=== PATIENT | female | born 1945 | race Caucasian/White ===

== ENCOUNTER → 2023-12-15 11:39 | Outpatient (REF) | payer MEDICARE, OTHER, SELFPAY ==
[2023-12-15 13:35] LABS: Blood Urea Nitrogen 24 mg/dl (7-17)
== END ==
LOC: REG 11:39
PROVIDERS: ATTENDING PHYSICIAN Internal Medicine Gastroenterology
DX: K86.9 Disease of pancreas, unspecified (principal)
CPT/HCPCS: 36415; 82565; 84520

== ENCOUNTER → 2023-12-18 11:33 | Outpatient (REF) | payer MEDICARE, OTHER, SELFPAY | LOC: HWRAD 11:33 | PROVIDERS: ATTENDING PHYSICIAN Internal Medicine Gastroenterology | DX: D49.0 Neoplasm of unspecified behavior of digestive system (principal) | CPT/HCPCS: 74170; Q9967 ==

== ENCOUNTER → 2023-12-31 10:50 | Outpatient (REF) | payer MEDICARE, OTHER, SELFPAY | LOC: WDC 10:50 | PROVIDERS: ATTENDING PHYSICIAN Internal Medicine Hematology & Oncology | DX: Z12.31 Encounter for screening mammogram for malignant neoplasm of breast (principal); Z85.3 Personal history of malignant neoplasm of breast; C50.511 Malignant neoplasm of lower-outer quadrant of right female breast | CPT/HCPCS: 77063; 77067 ==

== ENCOUNTER → 2024-01-12 | Outpatient (REF) | payer MEDICARE, OTHER, SELFPAY | LOC: DHSLP | PROVIDERS: ATTENDING PHYSICIAN Internal Medicine Cardiovascular Disease | DX: G47.30 Sleep apnea, unspecified (principal); R06.83 Snoring | CPT/HCPCS: 95800 ==

== ENCOUNTER → 2024-02-02 12:31 | Outpatient (REF) | payer MEDICARE, OTHER, SELFPAY ==
[2024-02-02 13:59] LABS: % Basophils 0.9 % (0-2); % Eosinophils 5.1 % (0-6); % Immature Granulocytes 0.4 % (0-0.5); % Lymphocytes 22.9 % (20.5-51.1); % Monocytes 9.7 % (1.7-9.3); Absolute Basophils 0.1 10^3/uL (0-0.2); Absolute Eosinophils 0.4 10^3/uL (0-0.7); Absolute Lymphocytes 1.6 10^3/uL (1.2-3.4); Absolute Monocytes 0.7 10^3/uL (0.1-0.6); Absolute Neutrophils 4.2 10^3/uL (1.4-6.5); Hematocrit 44.5 % (37.0-47.0); Hemoglobin 14.6 g/dL (12.0-16.0); Mean Corp Hgb Conc. 32.8 g/dL (33.0-37.0); Mean Corpuscular Hgb 31.7 pg (27.0-31.0); Mean Corpuscular Volume 96.7 fL (81.0-99.0); Mean Platelet Volume 9.2 fL (7.4-10.4); Nucleated Red Blood Cells % 0 %; Platelet Count 184 10^3/uL (130-400); Red Cell Dist. Width 13.3 % (11.5-14.5); White Blood Cell Count 6.9 10^3/uL (4.8-10.8)
[2024-02-02 14:16] LABS: ALT (SGPT) 26 U/L (0-35); AST (SGOT) 30 U/L (14-36); Albumin 4.3 g/dl (3.5-5.0); Alkaline Phosphatase 117 U/L (38-126); Blood Urea Nitrogen 18 mg/dl (7-17); Calcium 9.8 mg/dl (8.4-10.2); Carbon Dioxide 28 mmol/L (22-30); Chloride 100 mmol/L (98-107); Glucose 99 mg/dl (70-99); Magnesium 2.3 mg/dl (1.6-2.3); Potassium 3.8 mmol/L (3.5-5.1); Sodium 135 mmol/L (135-145); Total Bilirubin 0.6 mg/dl (0.2-1.3); Total Protein 7.3 g/dl (6.3-8.2); eGFR > 60.00
[2024-02-02 14:17] LABS: INR 1.16; PT 14.6 Sec (11.4-14.6)
== END ==
LOC: SDSPAT 12:31
PROVIDERS: ATTENDING PHYSICIAN Internal Medicine Cardiovascular Disease; OTHER PHYSICIAN Internal Medicine Cardiovascular Disease
DX: Z01.818 Encounter for other preprocedural examination (principal); I48.0 Paroxysmal atrial fibrillation; I48.92 Unspecified atrial flutter
CPT/HCPCS: 36415; 75572; 80053; 83735; 85025; 85610; 86850; 86900; 86901; 93005; Q9967

== ENCOUNTER 2024-02-17 08:49 | Day surgery (SDC) | payer MEDICARE, OTHER, SELFPAY ==
[2024-02-02 13:03] VITALS: BMI 48.1
[2024-02-17] VITALS (16 sets, daily range): BP systolic 106–140; BP diastolic 42–81; BMI 47.5
[2024-02-17 12:39] LABS: ACT-LR - POC 295 Seconds (116-155)
[2024-02-17 12:58] LABS: ACT-LR - POC 327 Seconds (116-155)
[2024-02-17 13:14] LABS: ACT-LR - POC 318 Seconds (116-155)
[2024-02-17 13:37] LABS: ACT-LR - POC 379 Seconds (116-155)
[2024-02-17 13:57] LABS: ACT-LR - POC 356 Seconds (116-155)
[2024-02-17] MEDS: ANESTHETIC LOZENGE 1 LOZENGE PO ×2 (14:49→21:23)
--- NOTE | 2024-02-17 15:18 | ITS.CL.ABL ---
Information Assurance Officer - Ablation
Ablation
Procedure Report:
ELECTROPHYSIOLOGIC STUDY AND POSSIBLE ABLATION
DATE: February 17, 2024
Primary Care Provider: Dr Ariel Bartlett
Primary miller rod mill: Dr Kristal Patrick
INDICATION:
Symptomatic Atrial Fibrillation.
Paroxysmal
HISTORY: See H and P.
Symptomatic AF, poorly controlled with attempted medical therapy
HAS-BLED: 1
Age
CHADSVASc: 4
HTN
Age
F Gender
PRESENTING RHYTHM: SR
HISTORY: See H and P.
Symptomatic AF, poorly controlled with attempted medical therapy.
She has a history of paroxysmal atrial fibrillation which was previously detected on device diagnostics when she had a dual-chamber permanent pacemaker. Due to the need for left-sided radiation therapy for breast cancer. She underwent removal of the
right sided permanent pacemaker generator with capping of the retained leads as well as implantation of AV micra pacemaker.�
She has demonstrated recurrent symptomatic paroxysmal atrial fibrillation and 'atrial flutter'.
Evaluation of electrocardiogram from [facility] where she presented with symptomatic tachycardia on January 31, 2023 demonstrates atrial flutter with a rapid ventricular rate. Flutter does appear to be atypical.
ANTICOAGULATION: Eliquis 5 mg twice
'TIME-OUT': called and confirmed.
SEDATION/ANESTHESIA: provided via the anesthesia department using general anesthesia.
PROCEDURE:
Ultrasound Guidance performed by az was utilized for femoral venous Vascular Access b/l.
A decapolar CS catheter was placed within the CS for mapping and pacing.
The intracardiac ultrasound catheter was positioned in the RA for continuous intracardiac ultrasound imaging.
Heparin bolus and infusion to target ACT at 300 -350 seconds was administered. Transseptal puncture was performed. This entailed advancing a sheath with dilator into the superior vena cava and withdrawing both (monitoring intracardiac ultrasound,
fluoroscopy and tip pressure) with the tip oriented toward the atrial septum. The fossa ovalis was engaged (indicated by sudden displacement of the sheath tip as well as tenting of the fossa seen on intracardiac ultrasound). [employer] transseptal
system was used. Left atrial catheter position was confirmed by echocardiographic imaging, pressure monitoring and fluoroscopy. The sheath was advanced over the dilator and positioned in the left atrium. Left atrial catheter position was confirmed
by pressure monitoring as well as fluoroscopy. The sheath was advanced over the dilator and positioned in the left atrium.
The multipolar mapping catheter was initially positioned through the transseptal sheath for high density mapping.
Additional geometry and voltage mapping was performed using the Medtronic Pulse Select PFA catheter and Navex 3-D electroanatomical mapping.
A 3-D map was created using Navex. A 3-D reconstructed CT image was compared to the 3-D Navex map to assist in anatomic evaluation, mapping and ablation.
The psicofxptronic Pulse Select PFA catheter and system was used for cardiac ablation. Catheter positioning was guided and confirmed using both I.C.E. and fluoroscopy.
PV isolation approach was used to electrically isolate each PV ostia.
First, all PVPs were targeted at each vein. All PVPs were eliminated at each vein demonstrating entrance block. Also pacing from the multipolar mapping catheter around the the circumference of the ostia was performed at 10 ma and 2.0 msec output
to assess for exit block.
Additional ablation lesion set was performed beyond ostial isolation to include wide area circumferential ablation. This included delivery of additional energy pulses to the posterior wall of the left atrium along the antrum of each of the
pulmonary veins (left superior, left inferior, right superior, right inferior)
Mapping with the multipolar mapping catheter, [employer], was repeated at each PV ostia to assess for any 're connect', both entrance and exit block was demonstrated and the veins were felt to be fully isolated and a wide area circumferential
ablation pattern.
She carried a history of possible atrial flutter although electrocardiogram demonstrated this was more likely atypical/left atrial flutter. After completion of ablation programmed electrical stimulation was performed which included both burst
atrial pacing as well as delivery of atrial decremental extrastimuli and there were no inducible arrhythmias. Therefore empiric cavotricuspid isthmus ablation was avoided.
I.C.E. :
Pre-Ablation Post-Ablation
LVEF: 55 % 55 %
WMA: none none
Pericardial effusion: Trivial posterior Trivial posterior
COMPLICATIONS:
None
SUMMARY:
- Mapping and ablation to isolate the PVs
- Additional AF ablation set after PVI.
- 3-D Electroanatomical Mapping
- Intracardiac Ultrasound
Post ablation, I discussed today's findings and results with the patient's , Sukumar.
RECOMMENDATIONS:
- Observe in monitored bed.
- Maintain oral anticoagulation.
- Office visit with me in 3 months.
- Continue cardiovascular care with Dr Kristal Patrick
Copy to:
Dr Ariel Bartlett
Primary miller rod mill: Dr Kristal Patrick
[2024-02-17] MEDS: TYLENOL 650 MG PO (15:48)
--- NOTE | 2024-02-17 15:53 | PTCARENOTE ---
pt received post cath to room 2258. Pt AAOX3 resting in bed. SR on telemetry heart rate in 60s. pulses weakly palpable. no edema. pt on 2L nasal cannula, sat 96%. lung sounds diminished. active bowel sounds, tolerating clears and ice chips. denies
urge to void at this time. bilateral groin sites CDI with figure 8 sutures and dressings intact. see worklist for full nursing assessment and interventions.
--- NOTE | 2024-02-17 16:22 | CM ---
Chart reviewed. Patient is independent of ADLS, lives in an apartment attached to her son's house, 1 A[address] the house and then another 9 steps to the patient's apartment, 0 DME. Patient currently with no discharge needs. CM to follow
[2024-02-17] MEDS: ROXICODONE 5 MG PO (18:31)
[2024-02-17] MEDS: ELIQUIS 5 MG PO (20:50)
[2024-02-17] MEDS: COREG 3.125 MG PO (20:50)
[2024-02-17] MEDS: LIPITOR 10 MG PO (21:55)
[2024-02-18] MEDS: ANESTHETIC LOZENGE 1 LOZENGE PO (01:39)
--- NOTE | 2024-02-18 02:39 | PTCARENOTE ---
OOB in recliner at present. Voiding without difficulty. Groin sites wnl. SR on the monitor 60-70's.
[2024-02-18 04:19] VITALS: BP 129/77
[2024-02-18 05:24] LABS: Hematocrit 40.6 % (37.0-47.0); Mean Corp Hgb Conc. 34.5 g/dL (33.0-37.0); Mean Corpuscular Hgb 32.4 pg (27.0-31.0); Platelet Count 198 10^3/uL (130-400); Red Blood Cell Count 4.32 10^6/uL (4.20-5.40); Red Cell Dist. Width 13.5 % (11.5-14.5); White Blood Cell Count 13.7 10^3/uL (4.8-10.8)
[2024-02-18 05:51] LABS: Blood Urea Nitrogen 19 mg/dl (7-17); Calcium 9.7 mg/dl (8.4-10.2); Carbon Dioxide 23 mmol/L (22-30); Chloride 105 mmol/L (98-107); Estimated Creatinine Clearance 74 ml/min; Glucose 118 mg/dl (70-99); Magnesium 2.4 mg/dl (1.6-2.3); Potassium 4.2 mmol/L (3.5-5.1); Sodium 134 mmol/L (135-145); eGFR > 60.00
[2024-02-18 07:16] VITALS: BP 132/58
[2024-02-18] MEDS: COREG 3.125 MG PO (07:16)
[2024-02-18] MEDS: CLARITIN 10 MG PO (07:16)
[2024-02-18] MEDS: ARIMIDEX 1 MG PO (07:16)
[2024-02-18] MEDS: ELIQUIS 5 MG PO (07:16)
[2024-02-18] MEDS: COZAAR 50 MG PO (07:17)
[2024-02-18] MEDS: LASIX 40 MG PO (07:17)
--- NOTE | 2024-02-18 09:34 | W.PN.CARDCBS ---
Today's Communication / Plan
-
stable for d/c home
Impression / Plan
-
Primary Care Provider: Dr Ariel Bartlett
Primary consulting networking engineer: Dr Kristal Patrick
Impression:
Symptomatic paroxysmal Afib
HTN
HLD
Heart block post PPM 2011
MICRA placed 2019
Breast CA post lumpectomy, chemo/XRT 2018
DDD
OA
MO
Pancreatic lesion
peripheral neuropathy
Diverticulosis
Plan:
post PFA PVI ablation 02/17/24
feels good, groins stable
tele SR 1 deg AVB
OAC Eliquis
continue losartan, carvedilol
Activity restrictions reviewed
f/u Dr. Carlos in 2 mo
home today
Progress Note - Medical Billing Supervisor
Subjective
Date of Service: February 18, 2024
no cp, sob
Objective
Labs:
02/18/24 04:28
02/18/24 04:28
Labs
Hgb 14.0 g/dL (12.0-16.0) 02/18/24 04:28
Hct 40.6 % (37.0-47.0) 02/18/24 04:28
Plt Count 198 10^3/uL (130-400) 02/18/24 04:28
Sodium 134 mmol/L (135-145) L 02/18/24 04:28
Potassium 4.2 mmol/L (3.5-5.1) 02/18/24 04:28
BUN 19 mg/dl (7-17) H 02/18/24 04:28
Creatinine 0.7 mg/dL (0.6-1.0) 02/18/24 04:28
Glucose 118 mg/dl (70-99) H 02/18/24 04:28
Vital Signs and I&O:
Vital Signs
Temp Pulse Resp BP Pulse Ox
97.4 F 72 20 132/58 97
02/18/24 08:03 02/18/24 07:17 02/18/24 08:03 02/18/24 07:17 02/18/24 08:03
Vital Signs
Temp Pulse Resp BP Pulse Ox
97.4 F 72 20 132/58 97
02/18/24 08:03 02/18/24 07:17 02/18/24 08:03 02/18/24 07:17 02/18/24 08:03
Intake & Output
02/16/24 02/17/24 02/18/24 02/19/24
06:59 06:59 06:59 06:59
Intake Total 1810 / 1810
Output Total 500 / 500
Balance 1310 / 1310
Physical Exam
Physical Exam
NAD< AOX3
S1, S2, RRR
CTAB, diminished bases, non labored
SNTND Bsx4, obese
b/l groins c/d/i no HT, soft
[2024-02-18 12:32] VITALS: BP 124/59
--- NOTE | 2024-02-18 13:44 | W.DS.TRANS ---
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
-
Discharge Instructions:
Sleep Apnea Risk Intermediate
Discharge Diagnosis/Procedures AFib, s/p Ablation
Diet Low Cholesterol
Driving Restrictions No driving for 24 hours
Instructions:
Stand-Alone Forms: DC Instructions- Cath/EP Lab
Changes to Home Medications: No
Discharge Medications:
DC Medications w/original date entered in [employer]
losartan 50 mg tablet 50 mg PO DAILY Blood pressure 08/08/15
calcium citrate 200 mg (950 mg) tablet 500 mg PO BID Supplement 04/15/19
coenzyme Q10 200 mg capsule (Co Q-10) 400 mg PO HS Supplement 04/15/19
triamcinolone acetonide 55 mcg nasal spray aerosol (Nasacort) 2 sprays intranasal DAILY Allergies 08/11/19
cholecalciferol (vitamin D3) 50 mcg (2,000 unit) tablet 2,000 units PO HS Supplement 09/17/19
furosemide 40 mg tablet 40 mg PO DAILY Fluid retention/Swelling 09/17/19
simvastatin 20 mg tablet 10 mg PO HS High cholesterol 09/17/19
vit C 250 mg-vit E 90 mg-zinc 40 mg-copper 1 [id number] capsule (PreserVision AREDS-2) 1 ea PO BID Supplement/Eye 09/17/19
L.acidoph, paracasei,B. lactis 10 billion cell capsule 1 ea PO HS Supplement 04/26/20
anastrozole 1 mg tablet 1 mg PO DAILY Cancer 04/26/20
ascorbic acid (vitamin C) 1,000 mg tablet (Vitamin C) 1,200 mg PO DAILY Supplement 04/26/20
apixaban 5 mg tablet (Eliquis) 5 mg PO BID Blood clot prevention/tx ##0 04/27/20
carvedilol 3.125 mg tablet 3.125 mg PO BID 01/27/24
fexofenadine 180 mg tablet 180 mg PO HS Allergies 01/27/24
polyethylene glycol 3350 17 gram oral powder packet (Miralax) 17 g PO DAILYPRN PRN constipation 02/02/24
acetaminophen 500 mg capsule 500 mg PO Q6HPRN PRN pain 02/17/24
loratadine 10 mg tablet (Claritin) 10 mg PO DAILY 02/17/24
magnesium 250 mg tablet 500 mg PO HS 02/17/24
peg 400-propylene glycol 0.4 %-0.3 % eye drops (Systane (propylene glycol)) 1 drp BOTH EYES TID 02/17/24
Home Medication Changes
Pending Results: No
== END 2024-02-18 13:35 | disposition home or self-care (01) ==
LOC: CATH 08:49
PROVIDERS: Nurse Practitioner; ATTENDING PHYSICIAN Internal Medicine Cardiovascular Disease
DX: I48.0 Paroxysmal atrial fibrillation (principal); I48.92 Unspecified atrial flutter; R07.89 Other chest pain; R00.2 Palpitations; R06.02 Shortness of breath; Z79.01 Long term (current) use of anticoagulants; Z79.899 Other long term (current) drug therapy; I10 Essential (primary) hypertension; E78.5 Hyperlipidemia, unspecified; I44.1 Atrioventricular block, second degree; I07.1 Rheumatic tricuspid insufficiency; I49.3 Ventricular premature depolarization; Z87.19 Personal history of other diseases of the digestive system; G43.909 Migraine, unspecified, not intractable, without status migrainosus; M19.90 Unspecified osteoarthritis, unspecified site; H35.30 Unspecified macular degeneration; M85.80 Other specified disorders of bone density and structure, unspecified site; G62.9 Polyneuropathy, unspecified; Z92.21 Personal history of antineoplastic chemotherapy; Z85.3 Personal history of malignant neoplasm of breast; Z79.811 Long term (current) use of aromatase inhibitors; E66.01 Morbid (severe) obesity due to excess calories; Z68.42 Body mass index [BMI] 45.0-49.9, adult; Z90.710 Acquired absence of both cervix and uterus; Z88.0 Allergy status to penicillin; Z88.6 Allergy status to analgesic agent; Z88.8 Allergy status to other drugs, medicaments and biological substances; Z90.722 Acquired absence of ovaries, bilateral
CPT/HCPCS: C1732; C1894; C1769; C1730; C1892; C1759; 76937; 80048; 83735; 85027; 85347; 93005; 93656; 93657

== ENCOUNTER → 2024-04-27 11:59 | Outpatient (REF) | payer MEDICARE, OTHER, SELFPAY ==
[2024-04-27 12:52] LABS: % Basophils 0.8 % (0-2); % Eosinophils 3.7 % (0-6); % Immature Granulocytes 0.4 % (0-0.5); % Lymphocytes 18.3 % (20.5-51.1); % Monocytes 9.6 % (1.7-9.3); % Neutrophils 67.2 % (42.2-75.2); Absolute Basophils 0.1 10^3/uL (0-0.2); Absolute Eosinophils 0.3 10^3/uL (0-0.7); Absolute Lymphocytes 1.4 10^3/uL (1.2-3.4); Absolute Monocytes 0.7 10^3/uL (0.1-0.6); Absolute Neutrophils 5.1 10^3/uL (1.4-6.5); Hematocrit 42.7 % (37.0-47.0); Hemoglobin 14.4 g/dL (12.0-16.0); Mean Corp Hgb Conc. 33.7 g/dL (33.0-37.0); Mean Corpuscular Hgb 32.1 pg (27.0-31.0); Mean Corpuscular Volume 95.1 fL (81.0-99.0); Mean Platelet Volume 9.7 fL (7.4-10.4); Nucleated Red Blood Cells % 0 %; Platelet Count 210 10^3/uL (130-400); Red Blood Cell Count 4.49 10^6/uL (4.20-5.40); Red Cell Dist. Width 14.3 % (11.5-14.5); White Blood Cell Count 7.5 10^3/uL (4.8-10.8)
[2024-04-27 13:31] LABS: ALT (SGPT) 27 U/L (0-35); AST (SGOT) 31 U/L (14-36); Albumin 4.2 g/dl (3.5-5.0); Alkaline Phosphatase 118 U/L (38-126); Blood Urea Nitrogen 13 mg/dl (7-17); Carbon Dioxide 25 mmol/L (22-30); Chloride 102 mmol/L (98-107); Glucose 98 mg/dl (70-99); Potassium 4.1 mmol/L (3.5-5.1); Sodium 136 mmol/L (135-145); Total Bilirubin 0.7 mg/dl (0.2-1.3); Total Protein 6.8 g/dl (6.3-8.2); eGFR > 60.00
[2024-04-30 03:36] LABS: CA 27-29 15.3 U/mL (<=39.0)
== END ==
LOC: REG 11:59
PROVIDERS: ATTENDING PHYSICIAN Nurse Practitioner Family
DX: C50.511 Malignant neoplasm of lower-outer quadrant of right female breast (principal); K12.31 Oral mucositis (ulcerative) due to antineoplastic therapy; M85.80 Other specified disorders of bone density and structure, unspecified site
CPT/HCPCS: 36415; 80053; 85025; 86300

== ENCOUNTER → 2024-06-10 13:40 | Outpatient (REF) | payer MEDICARE, OTHER, SELFPAY ==
[2024-06-10 15:52] LABS: Blood Urea Nitrogen 17 mg/dl (7-17)
== END ==
LOC: REG 13:40
PROVIDERS: ATTENDING PHYSICIAN Internal Medicine Gastroenterology
DX: D49.0 Neoplasm of unspecified behavior of digestive system (principal)
CPT/HCPCS: 36415; 82565; 84520

== ENCOUNTER → 2024-06-17 11:08 | Outpatient (REF) | payer MEDICARE, OTHER, SELFPAY | LOC: RAD 11:08 | PROVIDERS: ATTENDING PHYSICIAN Internal Medicine Gastroenterology | DX: D49.0 Neoplasm of unspecified behavior of digestive system (principal); K86.9 Disease of pancreas, unspecified | CPT/HCPCS: 74170; Q9967 ==

== ENCOUNTER 2024-06-30 11:34 | Day surgery (SDC) | payer MEDICARE, OTHER, SELFPAY ==
[2024-06-30 12:06] VITALS: BMI 49.0
--- NOTE | 2024-06-30 16:08 | ITS.CL.IMPLP ---
Emblem Fuser Tender - Implant Loop
Implant Loop
Procedure Report:
Date of Procedure: 06/30/24
Primary Care Provider: Dr Ariel Bartlett
Primary coding validator: Dr Kristal Patrick
Procedure: Insertable Loop Recorder Implantation
Indication:
Atrial fibrillation
Procedure:
The patient was brought to the procedure area in a fasting state. The anterior chest was prepped and draped in standard sterile fashion. The fourth intercostal space along the left sternal border was identified and this area was anesthetized with 10
mL of 1% lidocaine. After gathering the skin in this area, a small punch incision was made at approx intercostal space 4-5 at left costo-sternal junction using the provided scalpel/punch tool. The loop recorder was loaded into the tunneling device.
A tunnel was created in the subcutaneous tissue at a 45� angle along the coronal plane away from the sternum and towards the left flank. The tunneling device was inverted and the plunger was depressed, inserting the loop recorder into the
subcutaneous space. The tunneling device was removed. Manual pressure provide hemostasis. Adequate signal was confirmed. The skin was closed with steri-strips. The estimated blood loss was < 1 cc. A clean dressing was placed over the wound.
There were no complications.
Implant:
Medtronic Reveal LINQ II
Conclusion: Uncomplicated implantation of loop recorder.
Recommendation:
Routine ILR care.
Maintain off of oral anticoagulation unless sustained atrial fibrillation is observed on monitoring.
Copy:
Dr Ariel Bartlett
Dr Kristal Patrick
== END 2024-06-30 14:12 | disposition home or self-care (01) ==
LOC: CATH 11:34
PROVIDERS: ATTENDING PHYSICIAN Internal Medicine Cardiovascular Disease; OTHER PHYSICIAN Internal Medicine Cardiovascular Disease
DX: I48.0 Paroxysmal atrial fibrillation (principal); I48.92 Unspecified atrial flutter; I10 Essential (primary) hypertension; E78.5 Hyperlipidemia, unspecified; I44.1 Atrioventricular block, second degree; I49.3 Ventricular premature depolarization; I07.1 Rheumatic tricuspid insufficiency; Z85.3 Personal history of malignant neoplasm of breast; E66.01 Morbid (severe) obesity due to excess calories; Z68.42 Body mass index [BMI] 45.0-49.9, adult
CPT/HCPCS: 33285; C1764

== ENCOUNTER → 2024-10-11 13:13 | Outpatient (REF) | payer MEDICARE, OTHER, SELFPAY | LOC: WDC 13:13 | PROVIDERS: ATTENDING PHYSICIAN Family Medicine Geriatric Medicine | DX: R92.333 Mammographic heterogeneous density, bilateral breasts (principal) | CPT/HCPCS: 76641 ==

== ENCOUNTER → 2024-11-12 08:29 | Outpatient (REF) | payer MEDICARE, OTHER, SELFPAY ==
[2024-11-12 09:48] LABS: % Basophils 1.1 % (0-2); % Eosinophils 5.1 % (0-6); % Immature Granulocytes 0.3 % (0-0.5); % Lymphocytes 17.6 % (20.5-51.1); % Monocytes 9.3 % (1.7-9.3); % Neutrophils 66.6 % (42.2-75.2); Absolute Basophils 0.1 10^3/uL (0-0.2); Absolute Eosinophils 0.4 10^3/uL (0-0.7); Absolute Lymphocytes 1.3 10^3/uL (1.2-3.4); Absolute Monocytes 0.7 10^3/uL (0.1-0.6); Hematocrit 44.9 % (37.0-47.0); Hemoglobin 15.4 g/dL (12.0-16.0); Mean Corp Hgb Conc. 34.3 g/dL (33.0-37.0); Mean Corpuscular Hgb 32.5 pg (27.0-31.0); Mean Corpuscular Volume 94.7 fL (81.0-99.0); Mean Platelet Volume 9.4 fL (7.4-10.4); Nucleated Red Blood Cells % 0 %; Platelet Count 196 10^3/uL (130-400); Red Blood Cell Count 4.74 10^6/uL (4.20-5.40); Red Cell Dist. Width 13.6 % (11.5-14.5); White Blood Cell Count 7.5 10^3/uL (4.8-10.8)
[2024-11-12 10:11] LABS: NT-proBNP 84.1 pg/ml
[2024-11-12 10:17] LABS: ALT (SGPT) 24 U/L (0-35); AST (SGOT) 29 U/L (14-36); Albumin 4.4 g/dl (3.5-5.0); Alkaline Phosphatase 116 U/L (38-126); Blood Urea Nitrogen 19 mg/dl (7-17); Calcium 9.5 mg/dl (8.4-10.2); Carbon Dioxide 25 mmol/L (22-30); Chloride 102 mmol/L (98-107); Glucose 108 mg/dl (70-99); HDL Cholesterol 51 mg/dl; LDL Cholesterol, Calculated 93 mg/dl; Magnesium 2.3 mg/dl (1.6-2.3); Potassium 4.1 mmol/L (3.5-5.1); Sodium 139 mmol/L (135-145); Total Bilirubin 0.8 mg/dl (0.2-1.3); Total Cholesterol 160 mg/dl (50-199); Total Protein 7.2 g/dl (6.3-8.2); Triglyceride 83 mg/dl (10-149); Very Low Density Lipoprotein 16 mg/dl (0-30); eGFR > 60.00
[2024-11-14 04:55] LABS: CA 27-29 19.9 U/mL (<=39.0)
== END ==
LOC: REG 08:29
PROVIDERS: ATTENDING PHYSICIAN Nurse Practitioner Family; OTHER PHYSICIAN Internal Medicine Cardiovascular Disease
DX: Z85.3 Personal history of malignant neoplasm of breast (principal); E78.5 Hyperlipidemia, unspecified
CPT/HCPCS: 36415; 80053; 80061; 83735; 83880; 85025; 86300

== ENCOUNTER → 2024-12-09 13:42 | Outpatient (REF) | payer MEDICARE, OTHER, SELFPAY | LOC: RCS 13:42 | PROVIDERS: ATTENDING PHYSICIAN Internal Medicine Cardiovascular Disease | DX: Z95.0 Presence of cardiac pacemaker (principal); I48.0 Paroxysmal atrial fibrillation | CPT/HCPCS: 93306 ==

== ENCOUNTER → 2024-12-21 14:07 | Outpatient (REF) | payer MEDICARE, OTHER, SELFPAY ==
[2024-12-21 15:36] LABS: % Basophils 1.1 % (0-2); % Eosinophils 3.9 % (0-6); % Immature Granulocytes 0.6 % (0-0.5); % Monocytes 9.6 % (1.7-9.3); % Neutrophils 64.8 % (42.2-75.2); Absolute Basophils 0.1 10^3/uL (0-0.2); Absolute Eosinophils 0.3 10^3/uL (0-0.7); Absolute Immature Granulocytes 0.1 10^3/uL (0-0.05); Absolute Lymphocytes 1.7 10^3/uL (1.2-3.4); Absolute Monocytes 0.8 10^3/uL (0.1-0.6); Absolute Neutrophils 5.3 10^3/uL (1.4-6.5); Hematocrit 43.8 % (37.0-47.0); Hemoglobin 14.8 g/dL (12.0-16.0); Mean Corp Hgb Conc. 33.8 g/dL (33.0-37.0); Mean Corpuscular Hgb 32.1 pg (27.0-31.0); Mean Platelet Volume 9.8 fL (7.4-10.4); Nucleated Red Blood Cells % 0 %; Platelet Count 220 10^3/uL (130-400); Red Blood Cell Count 4.61 10^6/uL (4.20-5.40); Red Cell Dist. Width 13.8 % (11.5-14.5); White Blood Cell Count 8.2 10^3/uL (4.8-10.8)
[2024-12-21 15:42] LABS: PT 13.5 Sec (11.4-14.6)
[2024-12-21 15:43] LABS: APTT 27.9 Sec (23.4-35.0)
[2024-12-21 15:49] LABS: Blood Urea Nitrogen 15 mg/dl (7-17); Carbon Dioxide 27 mmol/L (22-30); Chloride 99 mmol/L (98-107); Glucose 89 mg/dl (70-99); Potassium 3.5 mmol/L (3.5-5.1); Sodium 138 mmol/L (135-145); eGFR > 60.00
== END ==
LOC: REG 14:07
PROVIDERS: ATTENDING PHYSICIAN Nurse Practitioner Adult Health
DX: E87.6 Hypokalemia (principal); K86.2 Cyst of pancreas; I48.0 Paroxysmal atrial fibrillation
CPT/HCPCS: 36415; 80048; 85025; 85610; 85730

== ENCOUNTER → 2024-12-31 13:03 | Outpatient (REF) | payer MEDICARE, OTHER, SELFPAY | LOC: WDC 13:03 | PROVIDERS: ATTENDING PHYSICIAN Family Medicine Geriatric Medicine; FAMILY PHYSICIAN Physician Assistant | DX: Z12.31 Encounter for screening mammogram for malignant neoplasm of breast (principal) | CPT/HCPCS: 77063; 77067 ==

== ENCOUNTER 2025-04-10 17:18 | Emergency (ER) | payer MEDICARE, OTHER, SELFPAY ==
[2025-04-10 17:57] VITALS: BP 126/67
[2025-04-10 18:00] VITALS: BP 114/62
[2025-04-10 18:03] LABS: % Eosinophils 4.3 % (0-6); % Immature Granulocytes 0.4 % (0-0.5); % Lymphocytes 20.7 % (20.5-51.1); % Monocytes 7.6 % (1.7-9.3); Absolute Basophils 0.1 10^3/uL (0-0.2); Absolute Eosinophils 0.4 10^3/uL (0-0.7); Absolute Lymphocytes 1.7 10^3/uL (1.2-3.4); Absolute Monocytes 0.6 10^3/uL (0.1-0.6); Absolute Neutrophils 5.6 10^3/uL (1.4-6.5); Hematocrit 46.8 % (37.0-47.0); Hemoglobin 15.6 g/dL (12.0-16.0); Mean Corp Hgb Conc. 33.3 g/dL (33.0-37.0); Mean Corpuscular Hgb 31.3 pg (27.0-31.0); Mean Corpuscular Volume 93.8 fL (81.0-99.0); Mean Platelet Volume 9.6 fL (7.4-10.4); Nucleated Red Blood Cells % 0 %; Platelet Count 267 10^3/uL (130-400); Red Blood Cell Count 4.99 10^6/uL (4.20-5.40); Red Cell Dist. Width 14.3 % (11.5-14.5); White Blood Cell Count 8.4 10^3/uL (4.8-10.8)
[2025-04-10 18:27] LABS: NT-proBNP 4190 pg/ml; Troponin I < 0.012 ng/ml
[2025-04-10 18:32] LABS: ALT (SGPT) 27 U/L (0-35); AST (SGOT) 34 U/L (14-36); Albumin 3.9 g/dl (3.5-5.0); Alkaline Phosphatase 142 U/L (38-126); Blood Urea Nitrogen 14 mg/dl (7-17); Calcium 9.5 mg/dl (8.4-10.2); Carbon Dioxide 24 mmol/L (22-30); Chloride 108 mmol/L (98-107); Glucose 112 mg/dl (70-99); Potassium 3.6 mmol/L (3.5-5.1); Sodium 141 mmol/L (135-145); Total Bilirubin 0.8 mg/dl (0.2-1.3); Total Protein 6.9 g/dl (6.3-8.2); eGFR > 60.00
--- NOTE | 2025-04-10 18:38 | ED.GENMED ---
History of Present Illness
General
Chief Complaint: Heart Rate Problem
Source: patient
Time Seen by Provider: 04/10/25 18:19
History of Present Illness
History of Present Illness:
This patient is a 79-year-old female who says she has been feeling kind of weak all week long, associated with dyspnea on exertion. She denies orthopnea, PND, new leg swelling, weight gain, fever, chills, chest pain. She denies dyspnea at rest.
She checked her heart rate yesterday and noted it was in the 50s which continues today. She does not believe this is her baseline heart rate. She denies fever, chills, nausea, vomiting, abdominal pain, or other complaints. She denies cough, sore
throat, rhinorrhea.
Past History
Past History
ED Past Medical History: Other (A-fib, hypertension, hypercholesterolemia, breast cancer, pancreatic lesion)
ED Past Surgical History: Other (Pacemaker, lumpectomy July 2019, ablation, [facility])
Social History
Tobacco: Non-smoker
Alcohol: None
Drug: None
Living: with family
Phy Exam
Physical Exam
Physical Exam:
GENERAL: Alert , in no apparent distress
EYE: pupils equal and reactive
NECK: Supple, no significant adenopathy.
ENT: o/p clr, mmm.
CARDIAC: Regular rate and rhythm .
LUNGS: Clear breath sounds bilaterally, no acute respiratory distress, no wheezes/rales/rhonchi
ABDOMEN: Soft, without focal tenderness, no r/g, no cvat
NEUROLOGICAL: Alert and oriented, no focal neuro deficits
SKIN: Warm and dry, skin intact.
MUSCULOSKELETAL: Trace lower extremity symmetrical edema, well perfused.
PSYCH: Normal and appropriate interaction.
Course
Orders/Labs/Results
Orders:
Orders
04/10/25 17:25
Electrocardiogram (*1) Urgent
Reason for Study: Bradycardia / Tachycardia
Other Reason for Exam: Pacemaker problem
04/10/25 17:26
EKG- Treatment ONCE
04/10/25 17:55
Complete Blood Count/With Diff Urgent
Comprehensive Metabolic Panel Urgent
Pro-BNP [NT-proBNP] Urgent
Troponin I Urgent
04/10/25 18:38
CR Chest - 2 Views Urgent
Comment:
Reason For Exam: guajardo
04/10/25 18:50
COVID-19 Antigen Stat
Source: Nasal Swab
Influenza A+B Rapid Molecular Urgent
KEVIN Source: Nasal Swab
Specimen Description:
Abnormal Lab Results
04/10/25
17:55
MCH 31.3 H pg
(27.0-31.0)
Chloride 108 H mmol/L
(98-107)
Glucose 112 H mg/dl
(70-99)
Alkaline Phosphatase 142 H U/L
(38-126)
04/10/25 17:55
04/10/25 17:55
Vital Signs
Initial and Last Documented VS:
Initial Vital Signs
Temp Pulse Resp Pulse Ox
98.0 F 51 18 96
04/10/25 17:21 04/10/25 17:21 04/10/25 17:21 04/10/25 17:21
Last Documented Vital Signs
Temp Pulse Resp BP Pulse Ox
98.0 F 54 14 139/70 97
04/10/25 17:21 04/10/25 20:30 04/10/25 20:30 04/10/25 20:00 04/10/25 20:30
*Pulse Oximetry
SaO2: 97
Oxygen Mode of Delivery: Room air
*Critical Care Note
Total Time (30-74mins, 75-104mins- exclusive of procedures): Not Applicable
Update Note
Update Note:
Patient presents to the Emergency Department with ___dyspnea on exertion and noted bradycardia
Number and Complexity of Problems Addressed at the Encounter
� Chronic conditions affecting care:
� Acute Exacerbation and/or Progression of Chronic Illness:
� Differential Diagnosis includes: But not limited to heart failure, electrolyte disorder, heart rate related symptoms, etc.
Amount and/or Complexity of Data to be Reviewed and Analyzed
� I performed an independent evaluation of and my interpretation is:
EKG: Read by me, ventricular paced, bradycardic, no acute ischemia
CT:
Xrays:Mild cardiomegaly without radiographic evidence for acute pulmonary edema.
2. CHRONIC GRANULOMATOUS DISEASE INFECTION with calcified lymph nodes and pulmonary granulomas in the chest which appear unchanged.
3. Right intraventricular cardiac conduction device in place.
4. Abandoned cardiac pacemaker wires remaining in place.
5. 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
Laboratory Studies: Troponin within normal limits, BNP is noted to be elevated
Other: Medtronic report no acute events
� Review of other/old records reveals: Patient had an ablation in February at that time heart rate was noted to be in the 60s. Patient's most recent echo showed an EF of 55 to 60% with a normal left ventricular chamber size. Patient
had a loop recorder placed in June 2020 for
� Clinical information was obtained by an independent historian: Son who was at bedside
� Prescriptions/Medications Considered but not given:
� Further testing considered but not performed:
Risk of Complications and/or Morbidity or Mortality of Patient Management
� Social determinants of health affecting care:
� Discussion with other providers (PCP, Hospitalists, Consultants, etc):
� Escalation of care including admission/observation vs risk of discharge considered: 8:47 PM patient walked through emergency department with normal pulse ox, heart rate ranging between 50 and 70. She stated that she felt a
little dizzy, no neurological findings noted. She sat down and is now having a meal. She is asymptomatic. Case discussed with Dr. Kang from cardiology, sent ECG, discussed with him her Medtronic report, history, etc. Recommendation is to he
lower/DC AV jeffrey blocking agents and follow-up. Patient is taking carvedilol, 3.125 just once a day. I will recommend that she discontinue this for the next few days, and see her envelope adjuster in close follow-up.
ED Attending Note
-
Portions of this chart may have been created with voice recognition software.� Occasional wrong word or��sound alike� substitutions may have occurred due to the inherent limitations of voice recognition software.
Discharge Plan
Departure
Patient Disposition: Home (Routine Discharge)
Date of Disposition: 04/10/25
Time of Disposition: 20:48
Patient with high blood pressure during this ER visit?: Yes
Condition: Good
Discharge Problem:
Bradycardia
Instructions: Bradycardia, BLOOD PRESSURE
Prescriptions:
No Action
losartan 50 MG tablet
25 mg PO DAILY
coenzyme Q10 [Co Q-10] 200 MG capsule
400 mg PO HS
triamcinolone acetonide [Nasacort] 10.8 ML aerosol,spray
2 sprays intranasal DAILY
furosemide 40 MG tablet
40 mg PO DAILY
simvastatin 20 MG tablet
10 mg PO HS
cholecalciferol (vitamin D3) 2,000 UNITS tablet
2,000 units PO HS
PreserVision AREDS-2 1 EACH capsule
1 ea PO BID
anastrozole 1 MG tablet
1 mg PO DAILY
L.acidoph,paracasei,B.animalis 1 EACH capsule
1 ea PO HS
fexofenadine 180 mg Tablet
180 mg PO HS
carvedilol 3.125 mg Tablet
3.125 mg PO HS
acetaminophen 500 mg Capsule
500 mg PO Q6HPRN PRN (Reason: pain)
loratadine [Claritin] 10 mg Tablet
10 mg PO DAILY
Systane (propylene glycol) 0.4-0.3 % Drops
1 drp BOTH EYES BID
calcium citrate-vitamin D3 [Calcium Citrate + D] 315 mg-5 mcg (200 unit) Tablet
1 tab PO BID
Prevacid
Rx Instructions:
ONCE IN THE AM
Referrals:
Kristal Patrick MD [Active, Cardiology] - Next open appointment
UNKNOWN - PT DOES,NOT KNOW [Family Provider]
Activity Restrictions/Additional Instructions:
PLEASE DISCONTINUE YOUR CARVEDILOL FOR THE NEXT 3 DAYS. IN THAT TIME, PLEASE MAKE ARRANGEMENT TO FOLLOW-UP WITH YOUR SCHEDULE HANGER PROMPTLY. IF YOU DEVELOP FEVER, CHEST PAIN, INCREASING OR NEW SHORTNESS OF BREATH, LEG SWELLING, OR OTHER WORRISOME
SIGNS, PLEASE RETURN TO THE ER IMMEDIATELY!
Interventions
Interventions:
*Risk Screen - Suicide Last Done: 04/10/25 17:21
*General Assessment Last Done: 04/10/25 17:21
*Neglect/Abuse Screening Last Done: 04/10/25 17:21
*ED- Fall Risk Assessment Last Done: 04/10/25 17:59
*ED COVID-19 Vaccine History Last Done: 04/10/25 17:59
ED- Cardiac Assessment Last Done: 04/10/25 17:59
ED- Pulmonary Assessment Last Done: 04/10/25 17:59
Discharge Date and Time
Print Language: PORTUGUESE
[2025-04-10 19:00] VITALS: BP 130/67
[2025-04-10 19:14] LABS: COVID-19 Antigen Negative (Negative)
[2025-04-10 19:49] VITALS: BP 128/76
[2025-04-10 20:00] VITALS: BP 139/70
[2025-04-10 20:53] VITALS: BP 145/72
== END 2025-04-10 21:20 | disposition home or self-care (01) ==
LOC: EMR 17:18
PROVIDERS: EMERGENCY PHYSICIAN Emergency Medicine
DX: R00.1 Bradycardia, unspecified (principal); E78.00 Pure hypercholesterolemia, unspecified; I48.91 Unspecified atrial fibrillation; Z85.3 Personal history of malignant neoplasm of breast; Z95.0 Presence of cardiac pacemaker; Z79.899 Other long term (current) drug therapy
CPT/HCPCS: 99285; 71046; 80053; 83880; 84484; 85025; 87502; 87811; 93005

== ENCOUNTER → 2025-06-03 09:30 | Outpatient (REF) | payer MEDICARE, OTHER, SELFPAY ==
[2025-06-03 10:39] LABS: Hematocrit 42.9 % (37.0-47.0); Hemoglobin 14.2 g/dL (12.0-16.0); Mean Corp Hgb Conc. 33.1 g/dL (33.0-37.0); Mean Corpuscular Volume 92.5 fL (81.0-99.0); Nucleated Red Blood Cells % 0 %; Platelet Count 206 10^3/uL (130-400); Red Cell Dist. Width 15.1 % (11.5-14.5)
[2025-06-03 11:27] LABS: ALT (SGPT) 29 U/L (0-35); AST (SGOT) 35 U/L (14-36); Albumin 4.0 g/dl (3.5-5.0); Alkaline Phosphatase 122 U/L (38-126); Blood Urea Nitrogen 16 mg/dl (7-17); Calcium 9.3 mg/dl (8.4-10.2); Carbon Dioxide 28 mmol/L (22-30); Chloride 104 mmol/L (98-107); Glucose 92 mg/dl (70-99); Potassium 3.8 mmol/L (3.5-5.1); Sodium 140 mmol/L (135-145); Total Protein 7.0 g/dl (6.3-8.2); eGFR > 60.00
== END ==
LOC: SDSPAT 09:30
PROVIDERS: ATTENDING PHYSICIAN Internal Medicine Cardiovascular Disease; FAMILY PHYSICIAN Physician Assistant; REFERRING PHYSICIAN Internal Medicine Cardiovascular Disease
DX: I44.1 Atrioventricular block, second degree (principal)
CPT/HCPCS: 36415; 80053; 85025; 93005

== ENCOUNTER 2025-06-15 11:41 | Day surgery (SDC) | payer MEDICARE, OTHER, SELFPAY ==
[2025-06-03 10:02] VITALS: BMI 37.9
--- NOTE | 2025-06-03 10:19 | HPS.HSE ---
Family Physician
-
Family Physician: NO INTERVIEW UNKNOWN
Chief Complaint
-
Second degree AV block. Paroxysmal atrial fibrillation.
History of Present Illness
The patient is a 80 year old female presenting today with a history of second degree AV block and paroxysmal atrial fibrillation. She underwent pulmonary vein isolation in January 2024 for her arrhythmia. She is on no current pharmacological
therapy. Previous Coreg was stopped due to bradycardia and weakness. She was previously taking Eliquis for oral anticoagulation; however, this was stopped in February 2024 due to a traumatic subdural hematoma after a fall. A loop recorder was implanted
in June 2024 to monitor her arrhythmia. Fortunately, she has had no symptomatic recurrences of her arrhythmia since her ablation. A pacemaker was implanted in 2011 due to her second degree AV block. This was removed in 2019 and a Micra leadless
pacemaker was inserted at that time given the need for radiation of her left breast due to cancer. She has completed radiation therapy at this time. She has demonstrated no recurrence of her malignancy. Her pacemaker wires were left in place. The
possibility of placing a new generator on her retained atrial and ventricular leads was discussed as of recently. She is aware that radiation therapy could have possibly resulted in some damage to her leads (although this likelihood is low). She
would like to proceed with the implantation of a new pacemaker generator at this time which we could attach to her chronic leads. She denies any complaints today such as chest pain, shortness of breath at rest, nausea, vomiting, diarrhea, cough,
sore throat, or fever.
Medical History
Past Medical History
Past Medical History: Reports Other
Additional Past Medical History:
1. Second-degree AV block, status post pacemaker implant, 2011, and pacemaker explant/insertion of Micra leadless pacemaker 2019.
2. Paroxysmal atrial fibrillation and atrial flutter, status post pulmonary vein isolation 01/2024, and implantable loop recorder 06/2024.
3. Hypertension.
4. Hyperlipidemia.
5. PVCs.
6. Mild mitral and tricuspid regurgitation.
7. Chronic peripheral edema.
8. Calcified pulmonary granulomas, stable on serial imaging.
9. Chronic dyspnea on exertion.
10. Hyperplastic colon polyps.
11. Diverticulosis.
12. Pancreatic lesion, status post Whipple surgery 12/2024.
13. Remote migraines.
14. Traumatic subdural hematoma, 02/2024, in the setting of fall and oral anticoagulation use.
15. Ambulatory dysfunction.
16. Degenerative disc disease.
17. Osteoarthritis, status post left total knee arthroplasty, 2006, and right total knee arthroplasty 2010.
18. Left-sided breast cancer, 2019, status post left lumpectomy, chemotherapy, and radiation. On Anastrozole.
19. Chemo-induced peripheral neuropathy.
20. Thyroid nodule.
21. Macular degeneration.
22. Bilateral cataracts.
23. Osteopenia.
24. Obesity, BMI 37.9.
Past Surgical History: Reports Other
Additional Past Surgical History:
1. Pulmonary vein isolation.
2. Loop recorder implant.
3. Left cardiac catheterization.
4. Pacemaker insertion.
5. Pacemaker explant and insertion of Micra leadless pacemaker.
6. Right total knee arthroplasty.
7. Left total knee arthroplasty.
8. Hysterectomy and bilateral salpingo-oophorectomy.
9. Left shoulder arthroscopy and bone spur excision.
10. Right carpal tunnel release.
11. Whipple procedure.
12. .
13. Multiple D&Cs.
14. Left breast lumpectomy.
15. Multiple bilateral breast biopsies.
16. Tonsillectomy.
17. Colonoscopy x4.
18. Endoscopic ultrasound.
Social History
Tobacco: Non-smoker
Alcohol: Other (Rare use reported. )
Living: Other (The patient lives in an apartment in the lower level of her son's home. )
Family History
Family History: Not pertinent
Allergies / Home Medications
Allergy/Medication List:
HOME MEDICATIONS:
1. Anastrozole 1 mg p.o. daily.
2. Ascorbic acid 500 mg p.o. at bedtime.
3. Calcium citrate and vitamin D3 1 tablet p.o. twice a day.
4. Voltaren 1 application topical daily as needed.
5. Cholecalciferol 2000 units p.o. at bedtime.
6. Famotidine 20 mg p.o. three times a day as needed.
7. CoQ10 400 mg p.o. at bedtime.
8. Furosemide 80 mg p.o. every other day.
9. Fexofenadine 180 mg p.o. at bedtime.
10. Furosemide 40 mg p.o. every other day.
11. Probiotic 1 tablet p.o. at bedtime.
12. Losartan 50 mg p.o. daily.
13. PreserVision 1 tablet p.o. twice a day.
14. Simvastatin 10 mg p.o. every evening.
15. Nasacort 2 sprays intranasal daily.
16. Tylenol 500 mg p.o. every 6 hours as needed.
17. Claritin 10 mg p.o. daily.
18. Systane 1 drop both eyes twice a day.
ALLERGIES: Chlorpheniramine. Fluorescein. Ibuprofen and other NSAIDs. Triamcinolone. Amoxicillin. Metoprolol. Pseudoephedrine. Fosamax. Amlodipine. Omeprazole. Pravastatin. Environmental.
Review of Systems
-
A 12 point ROS was completed and negative except as noted: Yes
Physical Exam
Vital Signs
Blood pressure 122/53. Heart rate 66. Respirations 18. Pulse ox 96% on room air.
Height 5 feet. Weight 88 kg. BMI 37.9.
Physical Exam
General: Well Developed, Well Nourished and No Apparent Distress
HEENT: NormoCephalic, Moist mucous membranes, Atraumatic and PERRLA
Respiratory: Clear
Cardiac: Regular Rhythm
GI: Soft, Non Tender, Non Distended and Other (Obese. )
Musculoskeletal: Edema, Left Lower Extremity, Edema, Right Lower Extremity and Other (The patient ambulates with a single point cane. )
Skin: Warm and Dry
Neuro: AO x 3 and Nonfocal/grossly intact
Laboratory Results
-
DIAGNOSTIC STUDIES as of 06/03/2025: White blood cell count 8.7. Hemoglobin 14.2. Platelet count 206,000. Sodium 140. Potassium 3.8. BUN 16. Creatinine 0.6. Glucose 92. Calcium 9.3. AST 35. ALT 29. Albumin 4.0.
EKG 06/03/2025: Atrial-sensed ventricular-paced rhythm with prolonged AV conduction.
Echocardiogram 12/09/2024: Normal left ventricular size, wall thickness, and systolic function. LV ejection fraction is 55-60% by volumetric assessment. Normal right ventricular size and function. Mild mitral regurgitation. Mild focal calcification.
Mild tricuspid regurgitation. Estimated pulmonary artery pressure of 30-35 mmHg, assuming a right atrial pressure of 3 mmHg. Pulmonic valve is grossly normal but poorly visualized. The IVC is of normal size and demonstrates normal respiratory
variation. No change since the 2020 echocardiogram.
Impression/Plan
-
IMPRESSION/PLAN:
1. Second degree AV block and paroxysmal atrial fibrillation: The patient is in need of a dual chamber pacemaker generator change on 06/15/[address] Gómez Patrick. The benefits and risks of the procedure have been explained to the patient.
The patient understands these risks and wishes to proceed.
[2025-06-15 12:09] VITALS: BP 125/63
[2025-06-15 12:16] VITALS: BP 125/64; BMI 38.8
--- NOTE | 2025-06-15 16:37 | ITS.CL.PACE ---
[facility] - Pacemaker Implant
Pacemaker Implant
Procedure Report:
PACEMAKER IMPLANT REPORT
Primary Care Provider: Dr. Ariel Bartlett
Primary supervisor of guidance and testing: Dr Kristal Patrick
Date of Procedure: June 15, 2025
Procedure:
1: Implantation of dual-chamber permanent pacemaker generator
Indication/Diagnosis:
Non-reversible symptomatic bradycardia due to second-degree heart block.
HISTORY:
Complicated medical history.
Initial implantation of pacemaker 2011
She developed breast cancer requiring radiation therapy at a location where the generator would be an obstruction to the radiation being
She then underwent removal of pacemaker generator followed by implantation of Micra AV on April 26, 2020.
She has since developed progression of AV jeffrey conduction system disease to complete heart block and poorly tracks atrial sensing with the Micra AV device thereby resulting in essentially VVI pacing with AV dyssynchrony which has been highly
symptomatic.
She presents today for implantation of dual-chamber ICD pacemaker to allow AV synchrony.
After informed consent was obtained, 'time out' was called and confirmed, the patient was prepped and draped in a sterile fashion. Lidocaine with epi was used for local anesthesia. Central venous access was obtained via axillary venopuncture. An
incision was made along the left chest and a pre-pectoral pocket was formed. Using a Seldinger technique and peel-away sheaths, the pacing leads were placed under fluoroscopic guidance.
Once testing (see below) showed adequate and stable function, the leads were secured using the suture sleeves. The pocket was liberally irrigated with antibiotic solution. The leads were connected to the generator header and the leads and
generator were placed within the pocket. Fluoroscopy confirmed stable lead position. The pocket was closed in the typical fashion.
Tyrex antibiotic pouch was utilized
IMPLANTS:
Medtronic [id number], SN: [id number], Left Pectoral
Previously implanted:
RA: Medtronic 5076, SN: [id number], implanted September 28, 2012
RV: Medtronic 5076, SN: [id number] implanted September 28, 2012
DEVICE TESTING:
Sensing: RA 1.9 mV, RV 9 mV
Capture: RA 0.75 V @ 0.4ms, RV 1 V @ 0.4ms
Ohms: RA 400, RV 520
FINAL PROGRAMMING
Cole Pacing: DDD 60-130 ppm
Additionally, the existing Micra AV device has been reprogrammed to VVI 40 ppm, essentially using it as a backup pacer if needed.
COMPLICATIONS:
None
CONCLUSIONS:
1: Successful implant of dual chamber permanent pacemaker
RECOMMENDATIONS:
1. Routine post-op care (tele, CXR, IV abx).
2. In-Office wound check in 5-7 days.
Copy to:
Dr. Ariel Bartlett
Dr Kristal Patrick
[2025-06-15 17:20] VITALS: BP 111/84
[2025-06-15 17:25] VITALS: BP 144/123
[2025-06-15 17:31] VITALS: BP 112/66
[2025-06-15 17:45] VITALS: BP 105/70
== END 2025-06-15 18:15 | disposition home or self-care (01) ==
LOC: CATH 11:41
PROVIDERS: ATTENDING PHYSICIAN Internal Medicine Cardiovascular Disease; FAMILY PHYSICIAN Physician Assistant; OTHER PHYSICIAN Internal Medicine Cardiovascular Disease
DX: Z45.010 Encounter for checking and testing of cardiac pacemaker pulse generator [battery] (principal); I44.2 Atrioventricular block, complete; I48.0 Paroxysmal atrial fibrillation; Z92.21 Personal history of antineoplastic chemotherapy; Z92.3 Personal history of irradiation; I10 Essential (primary) hypertension; E78.5 Hyperlipidemia, unspecified; I08.1 Rheumatic disorders of both mitral and tricuspid valves; Z86.0102 Personal history of hyperplastic colon polyps; E04.1 Nontoxic single thyroid nodule; M85.80 Other specified disorders of bone density and structure, unspecified site; E66.9 Obesity, unspecified; Z68.37 Body mass index [BMI] 37.0-37.9, adult; M19.90 Unspecified osteoarthritis, unspecified site; Z96.653 Presence of artificial knee joint, bilateral; Z79.811 Long term (current) use of aromatase inhibitors; Z79.899 Other long term (current) drug therapy; Z88.6 Allergy status to analgesic agent; Z88.0 Allergy status to penicillin; Z88.8 Allergy status to other drugs, medicaments and biological substances; Z90.710 Acquired absence of both cervix and uterus; Z90.722 Acquired absence of ovaries, bilateral
CPT/HCPCS: 33228; C1785

== ENCOUNTER → 2025-06-21 13:41 | Outpatient (REF) | payer MEDICARE, OTHER, SELFPAY ==
[2025-06-21 14:40] LABS: Hematocrit 46.7 % (37.0-47.0); Hemoglobin 15.3 g/dL (12.0-16.0); Mean Corp Hgb Conc. 32.8 g/dL (33.0-37.0); Mean Corpuscular Volume 93.0 fL (81.0-99.0); Nucleated Red Blood Cells % 0 %; Platelet Count 235 10^3/uL (130-400); Red Cell Dist. Width 15.7 % (11.5-14.5)
[2025-06-21 14:41] LABS: ALT (SGPT) 41 U/L (0-35); AST (SGOT) 45 U/L (14-36); Albumin 4.4 g/dl (3.5-5.0); Alkaline Phosphatase 149 U/L (38-126); Total Protein 7.2 g/dl (6.3-8.2)
== END ==
LOC: REG 13:41
PROVIDERS: ATTENDING PHYSICIAN Internal Medicine Hematology & Oncology; FAMILY PHYSICIAN Physician Assistant
DX: C50.511 Malignant neoplasm of lower-outer quadrant of right female breast (principal); K12.31 Oral mucositis (ulcerative) due to antineoplastic therapy; M85.80 Other specified disorders of bone density and structure, unspecified site
CPT/HCPCS: 36415; 80076; 85025

== ENCOUNTER → 2025-07-26 12:52 | Outpatient (REF) | payer MEDICARE, OTHER, SELFPAY ==
[2025-07-26 13:43] LABS: Hematocrit 40.4 % (37.0-47.0); Hemoglobin 13.5 g/dL (12.0-16.0); Mean Corp Hgb Conc. 33.4 g/dL (33.0-37.0); Mean Corpuscular Volume 92.0 fL (81.0-99.0); Nucleated Red Blood Cells % 0 %; Platelet Count 200 10^3/uL (130-400); Red Cell Dist. Width 15.1 % (11.5-14.5)
[2025-07-26 14:12] LABS: ALT (SGPT) 27 U/L (0-35); AST (SGOT) 31 U/L (14-36); Albumin 3.9 g/dl (3.5-5.0); Alkaline Phosphatase 168 U/L (38-126); Total Protein 6.9 g/dl (6.3-8.2)
== END ==
LOC: REG 12:52
PROVIDERS: ATTENDING PHYSICIAN Internal Medicine Hematology & Oncology; FAMILY PHYSICIAN Physician Assistant
DX: C50.511 Malignant neoplasm of lower-outer quadrant of right female breast (principal); K12.31 Oral mucositis (ulcerative) due to antineoplastic therapy; M85.80 Other specified disorders of bone density and structure, unspecified site
CPT/HCPCS: 36415; 80076; 85025

== ENCOUNTER → 2025-08-08 11:26 | Outpatient (REF) | payer MEDICARE, OTHER, SELFPAY | LOC: REG 11:26 | PROVIDERS: ATTENDING PHYSICIAN Internal Medicine Hematology & Oncology; FAMILY PHYSICIAN Physician Assistant | DX: C50.511 Malignant neoplasm of lower-outer quadrant of right female breast (principal); K12.31 Oral mucositis (ulcerative) due to antineoplastic therapy; M85.80 Other specified disorders of bone density and structure, unspecified site | CPT/HCPCS: 36415 ==